=== PATIENT | female | born 1995 | race Caucasian/White ===

== ENCOUNTER 2018-02-25 18:32 | Emergency (ER) | payer MEDICAID ==
[~2018-02-25] VITALS: Ht 175.3 cm; Wt 151.4 kg
[2018-02-25 18:36] VITALS: BP 135/84
== END 2018-02-25 19:19 | disposition home or self-care (01) ==
LOC: ED 19:13
DX: J20.8 Acute bronchitis due to other specified organisms (principal); B97.89 Other viral agents as the cause of diseases classified elsewhere
CPT/HCPCS: 71046; 99283

== ENCOUNTER 2020-05-04 16:14 | Emergency (ER) | payer MEDICAID ==
[~2020-05-04] VITALS: Ht 175.3 cm; Wt 136.9 kg
--- NOTE | 2020-05-04 17:11 | NUR ---
PT PRESENTS TO ED WITH C/O SOB AND HEADACHES X 3 DAYS, PT HAS HAD CLOSE CONTACT WITH COVID + PERSON WITHIN LAST WEEK. PT IS A&O, RESPS EVEN AND UNLABORED, NEURO INTACT. PT IS SINUS TACH, RATE 100'S WITH NO ECTOPY ON GLOBAL PROFESSIONAL. ALL MONITORS IN PLACE, CALL LIGHT IN REACH. AWAITING CXR AND DISPO.
[2020-05-04 18:00] LABS: RAPID INFLUENZA A Negative (Negative); RAPID INFLUENZA B Negative (Negative)
[2020-05-04 18:33] VITALS: BP 127/79
--- NOTE | 2020-05-04 18:34 | NUR ---
Patient given discharge instructions and they have confirmed that they understand the instructions. Patient ambulatory with steady gait.
== END 2020-05-04 18:35 | disposition home or self-care (01) ==
LOC: ED 17:40
DX: U07.1 COVID-19 (principal); J06.9 Acute upper respiratory infection, unspecified
CPT/HCPCS: 71045; 87400; 99284; U0003